=== PATIENT | male | born 1950 | race Caucasian/White ===

== ENCOUNTER 2020-12-15 13:23 | Outpatient (CLI) | payer MEDICARE, OTHER | END 2020-12-15 13:24 | disposition home or self-care (01) | LOC: CSHWCC 13:23 | PROVIDERS: ATTEND Nurse Practitioner Family | DX: T66.XXXD Radiation sickness, unspecified, subsequent encounter (principal); N30.41 Irradiation cystitis with hematuria; E78.2 Mixed hyperlipidemia; K21.9 Gastro-esophageal reflux disease without esophagitis; Z85.46 Personal history of malignant neoplasm of prostate | CPT/HCPCS: 97139; G0463; 99202 ==

== ENCOUNTER 2020-12-20 15:58 | Outpatient (CLI) | payer MEDICARE, OTHER | END 2020-12-20 15:59 | disposition home or self-care (01) | LOC: CSHRAD 15:58 | PROVIDERS: ATTEND Nurse Practitioner Family | DX: E78.2 Mixed hyperlipidemia (principal) | CPT/HCPCS: 71046 ==

== ENCOUNTER 2021-01-10 17:10 | Outpatient (CLI) | payer MEDICARE, OTHER | END 2021-01-10 17:11 | disposition home or self-care (01) | LOC: CSHWCC 17:10 | PROVIDERS: ATTEND Nurse Practitioner Family | DX: N30.40 Irradiation cystitis without hematuria (principal) ==

== ENCOUNTER 2025-06-02 08:40 | Outpatient (CLI) | payer MEDICARE, OTHER | END 2025-06-02 08:41 | disposition home or self-care (01) | LOC: CSHSLEEP 08:40 | PROVIDERS: ATTEND Family Medicine | DX: G47.33 Obstructive sleep apnea (adult) (pediatric) (principal); E66.9 Obesity, unspecified; Z68.27 Body mass index [BMI] 27.0-27.9, adult; R06.83 Snoring | CPT/HCPCS: 95800 ==